=== PATIENT | male | born 1980 | race Two or more races ===

== ENCOUNTER 2020-04-30 16:38 | Outpatient (REF) | payer BC, SELFPAY | END 2020-04-30 16:39 | disposition home or self-care (01) | LOC: HO.LAB 16:38 | PROVIDERS: PCP Nurse Practitioner Family; Visit Provider Internal Medicine | DX: Z20.828 Contact with and (suspected) exposure to other viral communicable diseases (principal) | CPT/HCPCS: C9803; U0003 ==

== ENCOUNTER 2020-05-07 11:06 | Outpatient (REF) | payer BC, MEDICAID, SELFPAY | END 2020-05-07 11:07 | disposition home or self-care (01) | LOC: HO.LAB 11:06 | PROVIDERS: Visit Provider Internal Medicine | DX: Z20.822 Contact with and (suspected) exposure to COVID-19 (principal) | CPT/HCPCS: 36415; C9803; U0003 ==

== ENCOUNTER 2020-05-13 13:17 | Outpatient (REF) | payer BC, MEDICAID, SELFPAY | END 2020-05-13 13:18 | disposition home or self-care (01) | LOC: HO.LAB 13:17 | PROVIDERS: PCP Nurse Practitioner Family; Visit Provider Internal Medicine | DX: Z20.822 Contact with and (suspected) exposure to COVID-19 (principal) | CPT/HCPCS: 36415; C9803; U0003 ==

== ENCOUNTER 2020-09-02 09:55 | Outpatient (REF) | payer BC, MEDICAID, SELFPAY ==
[2020-09-02 10:19] LABS: COVID-19 Test Negative (Negative)
== END 2020-09-02 09:56 | disposition home or self-care (01) ==
LOC: HO.LAB 09:55
PROVIDERS: Visit Provider Internal Medicine
DX: Z20.822 Contact with and (suspected) exposure to COVID-19 (principal)
CPT/HCPCS: 36415; 87635; C9803

== ENCOUNTER → 2021-06-26 13:20 | Outpatient (BNVA) | payer OTHER, SELFPAY | PROVIDERS: PCP Nurse Practitioner Family; Visit Provider Physician Assistant | DX: S46.911D Strain of unspecified muscle, fascia and tendon at shoulder and upper arm level, right arm, subsequent encounter (principal); X50.3XXD Overexertion from repetitive movements, subsequent encounter | CPT/HCPCS: 73030; 99203 ==

== ENCOUNTER → 2021-07-11 11:18 | Outpatient (BNVA) | payer OTHER, SELFPAY | PROVIDERS: PCP Nurse Practitioner Family; Visit Provider Physician Assistant | DX: S46.911D Strain of unspecified muscle, fascia and tendon at shoulder and upper arm level, right arm, subsequent encounter (principal); X58.XXXD Exposure to other specified factors, subsequent encounter | CPT/HCPCS: 99213 ==

== ENCOUNTER → 2021-07-30 13:04 | Outpatient (BNVA) | payer OTHER, SELFPAY | PROVIDERS: PCP Nurse Practitioner Family; Visit Provider Physician Assistant | DX: S46.911D Strain of unspecified muscle, fascia and tendon at shoulder and upper arm level, right arm, subsequent encounter (principal); X50.0XXD Overexertion from strenuous movement or load, subsequent encounter | CPT/HCPCS: 99213 ==

== ENCOUNTER 2021-08-04 10:00 | Outpatient (RCR) | payer OTHER, MEDICAID, SELFPAY ==
--- NOTE | 2021-07-02 08:28 | MHC.PT.EP ---
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 HE IS RIGHT HAND DOMINANT- OBJECTIVELY, Pt HAS LIMITED AROM CERV AND Rt SH FLEX/ ABD/ AND MILDLY W ROTAT; DECR STRENGTH IN Rt SH FLEX/ ABD/ELB FLEX, (+) SOFT TISSUE IRRIT W TrPS Rt UT/ PARSCAP/ POST RC/DELT TUB/ PECT INSERTION, (+) NEER'S Rt, AND PAIN IN GLOBAL Rt SH. FUNCTIONAL LIMITATIONS INCLUDE DIFFIC SLEEPING, LIMITED REACH/ CARRY/ LIFTING- HE IS CURRENTLY ON LIGT DUTY AT WORK, AND NOTES HE CAN PERFORM ADLs AT A SLOWER PACE AND W INCR USE OF LEFT UE- DIFFIC W OVERHEAD DRESSING. Pt WOULD BENEFIT FROM PT TO ADDRESS THE ABOVE FINDINGS, PAIN MGMT, DEV SELF0 SX MGMT STRATEGIES, AND ASSIST Pt W RTW. Frequency and Duration: The patient will be seen 2 X wk X 4 wks Short Term Goals: *Pt INDEP W SELF-CORRECT POSTURE / BODY MECHANICS W WORK SIMUL TO NEUTRAL IN VARIED POSTURES IN 2 wkS *Pt'S RIGHT SH PAIN DECR TO 2-3/10 W REG ADLs IN 2 WKS *Pt DEMON INCR AROM Rt SH IN 2 WKS *(-) Rt NEER'S SIGN AND DROP ARM W/O SXS IN 2 WKS Senior Maintenance Technician Goals: Pt INDEP W HEP PROGRESSION AND SELF-SX MGMT STRATEGIES IN 4 WKS Pt RESUME REG ADLs AND RTW REG DUTY EVIDENT W IMPROVED SPADI SCORE BY 8-10 POINTS (AT EVAL 71/130) IN 4 WKS PAIN AND SXS RESOLVE, Pt DEMON Rt UE STRENGTH IMRPOVED BY 1/2- 1 GRADE IN 4 WKS Treatment Plan: Modalities to reduce pain, spasms and effusion. Manual therapy to restore motion and function. Therapeutic exercise to improve strength and flexibility. Neuromuscular re-education for posture and balance. Therapeutic activities to return to functional activities of daily living. Electronically signed by: Fadia Carvajal PT Please sign and return to therapist. Thank you for your referral.
--- NOTE | 2021-08-23 07:19 | MHC.PT.DC ---
[facility] [place] Office [place] Office [place] Office [address] Hardy Wheeler [address] [phone] F: [phone] F: [phone] F: [phone] F: [phone] Physical Therapy Discharge Report Diagnosis: Rt SHOULDER STRAIN Date of Surgery: Date of Evaluation: 07/02/21 Date of Discharge: 08/22/21 Treatments to Date: 5 Cancellations to Date: No Shows to Date: 3 Discharge Status: Achieved Goals Improved Function Independent with HEP Discharge Summary: LAST ATTENDED PT APPT WAS 08/04/21 AND Pt NHUNG APPROP BODY THE [facility] W LIFTING/ WORK SIMUL. HE IS INDEP W HEP AND HAS MET ROM AND SCAP STAB GOALS. Pt HAS SOME RESIDUAL ANT GH TISSUE TENSION AND HE HAS BEEN EDUC RE SELF-MGMT TECHN. HIS PAIN HAS RELATIVELY RESOLVED AND HE HAS RTW- Pt MET PT GOALS AND IS D/C AT THIS TIME W HEP. Electronically signed by: Fadia Carvajal,PT Please sign and return to therapist. Thank you for your referral.
== END 2021-08-25 11:04 | disposition home or self-care (01) ==
LOC: HO.PT 10:00
PROVIDERS: Visit Provider Physician Assistant
DX: S46.911D Strain of unspecified muscle, fascia and tendon at shoulder and upper arm level, right arm, subsequent encounter (principal)
CPT/HCPCS: 97110; 97140; 97161; 97530

== ENCOUNTER 2021-08-26 11:53 | Outpatient (REF) | payer BC, SELFPAY ==
[2021-08-26 12:16] LABS: COVID-19 Test Positive (Negative)
== END 2021-08-26 11:54 | disposition home or self-care (01) ==
LOC: HO.LAB 11:53
PROVIDERS: Visit Provider Internal Medicine
DX: Z20.822 Contact with and (suspected) exposure to COVID-19 (principal)
CPT/HCPCS: 87635; C9803

== ENCOUNTER → 2021-09-02 10:48 | Outpatient (BNVA) | payer OTHER, SELFPAY | PROVIDERS: Visit Provider Physician Assistant | DX: M77.8 Other enthesopathies, not elsewhere classified (principal) | CPT/HCPCS: 99202 ==

== ENCOUNTER 2022-02-07 08:06 | Emergency (ER) | payer OTHER, SELFPAY ==
[2022-02-07 08:16] VITALS: BP 115/63; PULSE 70; RESP 17; TEMP 36.2; O2SAT 100; BMI 28.3
--- OUTSIDE RECORDS SUMMARY | 2022-02-07 10:37 | XMS_ITS | Continuity of Care Document ---
:1980 Author Organization [facility] Address [address] [place] [id number]- Care Team Providers Name Role Phone [place] TOSCANO, Melody Pitt Primary Care Physician Encounter [facility] [place] Date(s): 10/04/19 - 11/03/19 [facility]/[address] [address]- [facility] Attending Physician: Admtr, Ar8 Allergies, Adverse Reactions, Alerts Substance Reaction Severity Status theophylline Hives Active Hives Immunizations Given and Recorded Vaccine Date Status Refusal Reason
--- NOTE | 2022-02-07 10:42 | ED.GENADULT ---
HPI - General Adult General Chief complaint: General Medical Stated complaint: cold sore, neck pain and tension Time Seen by Provider: 02/07/22 10:19 Source: patient Mode of arrival: ambulatory Limitations: no limitations History of Present Illness HPI narrative: 41 yo male presents to the ER for evaluation of a painful and swollen cold sore on his right lower lip that has been worsening over the last 4-5 days. He states over the last 3 days he has noticed an increase in the size and tenderness of lymph nodes in the area. He has never had a cold sore like this before. He states it is crusting and swelling his whole lower lip. He thinks he may have an infection from using his eyebrow alin on his facial hair near his lip. He denies any drainage of pus or surrounding erythema. MD complaint: cold sore Onset (ago): day(s) (5) Location: mouth Radiation: neck Severity: moderate Quality: burning Pain Consistency: constant Relieving factors: none Exacerbating factors: eating and other (palpation) Associated symptoms: denies other symptoms Treatments prior to arrival: none Related Data Home Medications Medication Instructions Recorded Confirmed albuterol sulfate 90 mcg/actuation 0 mcg inhalation 09/02/21 aerosol inhaler Previous Rx's Medication Instructions Recorded acyclovir 400 mg tablet 400 mg PO TID 7 days #21 tabs 02/07/22 ibuprofen 600 mg tablet 600 mg PO Q8H PRN pain #14 tabs 02/07/22 Allergies Allergy/AdvReac Type Severity Reaction Status Date / Time theophylline [THEOPHYLLINE] Allergy Unknown HIVES Unverified 09/02/21 11:08 Review of Systems Review of Systems: Constitutional: No Fever, No Chills ENT/Mouth: No sore throat, No Rhinorrhea Eyes: No Eye Pain, No Swelling, No Redness Cardiovascular: No Chest Pain, No SOB Respiratory: No Cough, No Sputum, No Wheezing, No dyspnea Gastrointestinal: No Nausea, No Vomiting, No abdominal Pain Musculoskeletal: No joint pain, No Myalgias Skin: + Skin Lesions, No rash Neuro: No Weakness, No Numbness, No Dizziness, + Headache Heme/Lymph: No Bruising, + Lymphadenopathy PMFSH Past Medical History Medical History (Updated 02/07/22 @ 10:43 by SULMA Osorio) Asthma Social History Social History (Updated 09/02/21 @ 11:10 by AGUSTINA Barboza) Patient Tobacco Use Status: Current everyday Tobacco user Advance Directives: No Advance Directives Information Provided: Yes Current occupational status: employed 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 Oriented X3. No acute distress. HEENT: right lower lip with cluster of crusting tender lesions extending from lip to the surrounding skin. no intraoral lesions. poor dentition. ears are normal bilaterally. no palpable LAD CVS: Normal heart rate and rhythm. Pulses normal. Respiratory: No respiratory distress. Skin: Skin warm and dry. Normal skin color. Normal skin turgor. No rashes. Extremities: normal inspection x4, normal ROM Neuro: Oriented X 3. Nonfocal. CN II-XII intact. 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 will treat with po acyclovir. counseled on diagnosis and management. he will f/u with his PCP. stable for d/c home. Discharge Plan Discharge Clinical Impression: Cold sore Patient Disposition: Home, Self-Care Instructions: Oral Herpes Simplex Virus Infections (ED) Additional Instructions: Take the prescribed antiviral medication as directed. Complete the entire course. Continue using the topical Abreeva to the area. Next time you notice a cold sore developing, call your doctor to get started on antiviral medications right away so it does not get this bad next time. If you develop new or worsening symptoms call 911 or come back to the ER for further evaluation. Prescriptions: New acyclovir 400 mg tablet 400 mg PO TID 7 Days Qty: 21 0RF ibuprofen 600 mg tablet 600 mg PO Q8H PRN (Reason: pain) Qty: 14 0RF No Action albuterol sulfate 90 mcg/actuation HFA aerosol inhaler 0 mcg inhalation
== END 2022-02-07 10:57 | disposition home or self-care (01) ==
PROVIDERS: Emergency Provider Emergency Medicine
DX: B00.1 Herpesviral vesicular dermatitis (principal); F17.200 Nicotine dependence, unspecified, uncomplicated
CPT/HCPCS: 99282; 99283

== ENCOUNTER → 2022-08-21 13:02 | Outpatient (BNVA) | payer SELFPAY | PROVIDERS: Visit Provider Physician Assistant | DX: M77.8 Other enthesopathies, not elsewhere classified (principal); M25.511 Pain in right shoulder | CPT/HCPCS: 99212 ==

== ENCOUNTER 2022-10-18 07:59 | Emergency (ER) | payer BC, MEDICAID, SELFPAY ==
[2022-10-18 08:16] VITALS: PULSE 78; RESP 19; TEMP 36.6; O2SAT 99; BMI 28.0
--- NOTE | 2022-10-18 09:15 | PC.NURSE ---
Pt refuses covid swab states i dont think its covid and dont want any extra charges
--- NOTE | 2022-10-18 09:52 | ED.URI ---
HPI - URI/Sore Throat General Chief Complaint: Upper Respiratory Symptoms Stated Complaint: SOB Time Seen by Provider: 10/18/22 09:08 Source: patient Mode of arrival: ambulatory Limitations: no limitations History of Present Illness HPI Narrative: 42-year-old male with a history of asthma here with cough, wheezing, shortness of breath less than 1 week unrelieved with home albuterol MDI and nebulizers. Patient reports prednisone has been helpful in the past. He denies any fever, productive cough, chest pain, leg swelling or leg pain. Patient did home COVID test that were negative. He does not feel like he needs an additional COVID test here. Related Data Home Medications Medication Instructions Recorded Confirmed albuterol sulfate 90 mcg/actuation 0 mcg inhalation 09/02/21 aerosol inhaler Previous Rx's Medication Instructions Recorded acyclovir 400 mg tablet 400 mg PO TID 7 days #21 tabs 02/07/22 ibuprofen 600 mg tablet 600 mg PO Q8H PRN pain #14 tabs 02/07/22 prednisone 20 mg tablet 60 mg PO DAILY #15 tabs 10/18/22 Allergies Allergy/AdvReac Type Severity Reaction Status Date / Time theophylline [THEOPHYLLINE] Allergy Unknown HIVES Verified 10/18/22 08:16 Review of Systems Review of Systems: Yes all other systems are reviewed and are negative Constitutional: Constitutional: Reports no additional constitutional complaints, Denies body ache(s), Denies chills, Denies fever(s), Denies headache(s) and Denies weakness Eyes: Eyes: Reports no additional eye complaints and Denies change in vision ENT: Reports system reviewed and no additional complaints, except as documented, Denies dizziness, Denies headache(s), Denies nasal congestion, Denies nasal discharge and Denies neck pain Cardiovascular: Cardiovascular: Reports no additional cardiovascular complaints, Denies chest pain, Denies leg edema and Reports dyspnea Respiratory: Respiratory: Reports no additional respiratory complaints, Reports cough, Reports dyspnea and Reports wheezing Gastrointestinal: Gastrointestinal: Reports no additional gastrointestinal complaints, Denies abdominal pain, Denies diarrhea, Denies nausea and Denies vomiting Genitourinary: Genitourinary: Denies urinary incontinence Musculoskeletal: Musculoskeletal: Reports no additional musculoskeletal complaints, Denies back pain, Denies arthralgias, Denies joint swelling, Denies neck pain, Denies numbness and Denies tingling Integumentary/Breasts: Skin/Breast: Reports system reviewed and no additional complaints, except as docu and Denies rash Neurologic: Reports system reviewed and no additional complaints, except as documented, Denies Abnormal speech present, Denies dizziness, Denies headache(s), Denies numbness, Denies tingling and Denies weakness Allergic/Immunologic: Allergic/Immunologic: Reports wheezing PMFSH Past Medical History Attestation statement: The following information was validated with the patient. 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 Physical Exam Vital Signs: Vital Signs: Last Vital Signs Temp 98 F 10/18/22 08:16 Pulse 78 10/18/22 08:16 Resp 19 10/18/22 08:16 Pulse Ox 99 10/18/22 08:16 O2 Del Method Room Air 10/18/22 08:16 BMI result Body Mass Index 28.0 Const: General: cooperative, healthy appearing, comfortable and no acute distress Orientation/consciousness: patient oriented x3 Limitations: no limitations HEENT: Head: Yes normal to inspection Ears: hearing grossly normal bilaterally General nose exam: Normal external nose present Face and sinus: Yes normal facial exam Mouth: Normal oral and palatal mucosa present Throat: Yes posterior oropharynx normal Eyes: General: appearance normal, both eyes and all related structures Pupils: Equal, round and reactive pupils present Neck: Neck: Yes normal visual inspection Chest: Chest palpation & inspection: normal inspection of the chest Resp: Other: Mild expiratory wheezing Effort & Inspection: normal respiratory effort Cardio: Rate: regular rate Rhythm: regular rhythm Peripheral pulses: Peripheral pulses 2+ throughout GI: Inspection: Yes normal to inspection Palpation (GI): Soft to palpation and nontender Auscultation: normal bowel sounds Back/Spine/Pelvis: Thoracic/Lumbar Spine: thoracic and lumbar spine normal to inspection Skin: General skin exam: no rashes or lesions noted Neuro: General: patient oriented x3, no focal motor deficits and normal sensation to monofilament Cranial nerves: Yes Equal, round and reactive pupils present Cognition (Neuro): normal cognition Speech: No Abnormal speech present Gait exam (Neuro): Normal gait present Motor exam (neuro): 5/5 motor strength present throughout Extrem: General: Yes normal to inspection Medical Decision Making Medical Decision Making MDM Narrative: 42-year-old male here with cough, wheezing, shortness of breath with a history of acid which is unrelieved with albuterol MDI and nebulizer at home. On exam patient with mild expiratory wheezing Lungs otherwise are clear. His saturations are stable. Exam is benign. He has had improvement with prednisone in the past I will send him home with a prednisone prescription. Recommend he continue his albuterol at home. Reviewed worrisome signs and symptoms of when to return to the emergency room. Comfortable plan for discharge home. Differential Diagnosis Differential Diagnoses: The differential diagnosis associated with the presentation includes Asthma exacerbation. Low concern for PE (PERC 0), pneumonia Discharge Plan Discharge Clinical Impression: Asthma exacerbation Patient Disposition: Home, Self-Care Instructions: Asthma (ED) Prescriptions: New prednisone 20 mg tablet 60 mg PO DAILY Qty: 15 0RF No Action acyclovir 400 mg tablet 400 mg PO TID 7 Days Qty: 21 0RF ibuprofen 600 mg tablet 600 mg PO Q8H PRN (Reason: pain) Qty: 14 0RF albuterol sulfate 90 mcg/actuation HFA aerosol inhaler 0 mcg inhalation Referrals: Physician,None [Primary Care Provider] - 10 days
== END 2022-10-18 10:04 | disposition home or self-care (01) ==
PROVIDERS: Emergency Provider Student in an Organized Health Care Education/Training Program
DX: J45.901 Unspecified asthma with (acute) exacerbation (principal); Z79.899 Other long term (current) drug therapy
CPT/HCPCS: 99282; 99283